=== PATIENT | male | born 1970 | race Caucasian/White ===

== ENCOUNTER 2019-09-27 13:20 | Emergency (ER) | payer MEDICAID, OTHER ==
[~2019-09-27] VITALS: Ht 182.9 cm; Wt 78.0 kg
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
[2019-09-27] MEDS ORDERED: SODIUM CHLORIDE FLUSH 10ML SYR IVF ONE (14:00)
[2019-09-27] MEDS ORDERED: DIAZEPAM 5 MG/ML, 2ML IVPush ONE (14:00)
[2019-09-27] MEDS ORDERED: KETOROLAC 30 MG/1 ML IVPush ONE (14:00)
[2019-09-27] MEDS ORDERED: methylPREDNISolone SOD SUCC 125 MG/2 ML IVPush ONE (14:00)
[2019-09-27] MEDS ORDERED: HYDROmorphone 2 MG/ML, 1ML IVPush PRN (14:00)
[2019-09-27] MEDS ORDERED: methylPREDNISolone SOD SUCC 125 MG/2 ML ONE (14:06)
[2019-09-27] MEDS ORDERED: KETOROLAC 30 MG/1 ML ONE (14:07)
[2019-09-27] MEDS ORDERED: HYDROmorphone 1 MG/ML, 1ML INJ ONE (14:07)
[2019-09-27] MEDS ORDERED: DIAZEPAM 5 MG/ML, 2ML ONE (14:07)
--- NOTE | 2019-09-27 14:16 | NUR ---
MEDICATED PER EMAR
[2019-09-27] MEDS ORDERED: GADOTERATE 10 MMOL/20 ML SYR ONE (14:55)
--- NOTE | 2019-09-27 15:20 | NUR ---
BACK FROM MRI PAIN REMAINS AT 02/19-PROVIDER MADE AWARE
[2019-09-27 15:53] VITALS: BP 138/79
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
== END 2019-09-27 17:19 | disposition home or self-care (01) ==
LOC: ED 16:24
DX: M54.5 Low back pain (principal); R20.0 Anesthesia of skin
CPT/HCPCS: 72158; 96374; 96375; 99285; A9575; J1170; J1885; J2930; J3360; 99284

== ENCOUNTER 2019-09-30 09:09 | Inpatient (IN) | payer MEDICAID ==
[~2019-09-30] VITALS: Ht 182.9 cm; Wt 119.0 kg
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
[2019-09-30] MEDS ORDERED: METHOCARBAMOL 750 MG TABLET ONE (10:24)
[2019-09-30] MEDS ORDERED: HYDROmorphone 1 MG/ML, 1ML INJ ONE ×2 (10:24→17:57)
[2019-09-30] MEDS: HYDROmorphone 1 MG/ML, 1ML INJ IVPush PRN ×2 (10:27→18:01)
--- NOTE | 2019-09-30 10:29 | NUR ---
PT MEDICATED PER EMAR. PT TOLERATED WELL. PT'S AOX4. RESPS EVEN AND UNLABORED.
--- NOTE | 2019-09-30 10:29 | NUR ---
URINAL AT BEDSIDE. PT NEEDS TO VOID COMPLETELY PER EDMD ORDER. PT VERBILIZED UNDERSTANDING.
[2019-09-30] MEDS ORDERED: METHOCARBAMOL 750 MG TABLET PO ONE (10:30)
[2019-09-30] MEDS ORDERED: VITAMIN C (10:31)
[2019-09-30 10:38] LABS: BASOPHILS # (AUTO) 0.07 x10^3/uL (0-0.1); BASOPHILS % (AUTO) 1 % (0-1); EOSINOPHILS # (AUTO) 0.42 x10^3/uL (0-0.4); EOSINOPHILS % (AUTO) 4 % (1-7); LYMPHOCYTES # (AUTO) 2.27 x10^3/uL (1-3.4); LYMPHOCYTES % (AUTO) 20 % (22-44); MD NO; MEAN CORPUSCULAR HEMOGLOBIN 29.9 pg (27.5-34.5); MEAN CORPUSCULAR HGB CONC 33.1 g/dL (33.2-36.2); MEAN CORPUSCULAR VOLUME 90.3 fL (81-97); MEAN PLATELET VOLUME 8.2 fL (7.4-10.4); MONOCYTES # (AUTO) 0.91 x10^3/uL (0.2-0.8); MONOCYTES % (AUTO) 8 % (2-9); NEUTROPHILS # (AUTO) 7.52 x10^3/uL (1.8-6.8); NEUTROPHILS % (AUTO) 67 % (42-75); PLATELET COUNT 196 x10^3/uL (130-400); RED BLOOD COUNT 4.99 x10^6/uL (4.38-5.82); RED CELL DISTRIBUTION WIDTH 15.6 % (9.4-14.8)
[2019-09-30 10:42] LABS: ALBUMIN 3.9 g/dL (3.4-5.0); ANION GAP 8 mmol/L (5-15); CALCIUM 8.8 mg/dL (8.5-10.1); CHLORIDE 110 mmol/L (98-107); CREATININE 1.07 mg/dL (0.7-1.3)
--- NOTE | 2019-09-30 11:09 | NUR ---
PT STATES"I VOIDED COMPLETELY." CLEAR YELLOW URINE ABOUT 20ML IN URINAL. EDMD NOTIFIED.
--- NOTE | 2019-09-30 11:21 | NUR ---
HOSPITALIST AT BEDSIDE AT THIS TIME.
[2019-09-30] MEDS ORDERED: GABAPENTIN 300 MG CAPSULE PO PRN (11:30)
[2019-09-30] MEDS ORDERED: OXYcodone IR 5MG TABLET PO PRN (11:30)
[2019-09-30] MEDS ORDERED: SODIUM CHLORIDE FLUSH 10ML SYR IVF ONE (11:30)
[2019-09-30] MEDS ORDERED: hydrALAzine 20 MG/ML, 1ML IVPush PRN (11:30)
[2019-09-30] MEDS ORDERED: methylPREDNISolone SOD SUCC 40 MG/ML IV SCH (11:30)
[2019-09-30] MEDS ORDERED: ONDANSETRON ODT 4 MG PO PRN (11:30)
[2019-09-30] MEDS ORDERED: BACLOFEN 10 MG TABLET PO PRN (11:30)
[2019-09-30] MEDS ORDERED: IBUPROFEN 600 MG TABLET PO PRN (11:30)
[2019-09-30] MEDS ORDERED: ACETAMINOPHEN 325 MG TABLET PO PRN (11:30)
[2019-09-30] MEDS ORDERED: LIDODERM 5% PATCH TD PRN (11:30)
[2019-09-30] MEDS ORDERED: ONDANSETRON 2MG/ML, 2ML IVPush PRN (11:30)
[2019-09-30] MEDS ORDERED: methylPREDNISolone SOD SUCC 40 MG/ML ONE (11:36)
--- NOTE | 2019-09-30 11:39 | NUR ---
MEDICATIONS ORDERED FROM PHARMACY AT THIS TIME.
--- NOTE | 2019-09-30 11:44 | NUR ---
PT MEDICATED PER EMAR. PT TOLERATED WELL. PT'S AOX4. RESPS EVEN AND UNLABORED.
--- NOTE | 2019-09-30 12:24 | NUR ---
BREAK RN: PT MOVED ON TO HOSPITAL BED. CALL LIGHT WITHIN REACH
[2019-09-30] MEDS: GABAPENTIN 100 MG CAPSULE PO SCH ×3 (12:38→21:14)
[2019-09-30] MEDS: D5%-0.45NACL+KCL 20MEQ 1,000 ML IV SCH ×2 (12:39→22:51)
--- NOTE | 2019-09-30 12:43 | NUR ---
MEDICATED PER EMAR. D5W INFUSING AT THIS TIME. PT TOLERATED WELL.
[2019-09-30 13:43] LABS: PLATELET (PFA) 190 x10^3/uL (130-400)
--- NOTE | 2019-09-30 14:00 | NUR ---
pt in mri at this time.
--- NOTE | 2019-09-30 15:05 | NUR ---
pt back to room from mri at this time.
[2019-09-30] MEDS: methylPREDNISolone SOD SUCC 125 MG/2 ML IV SCH ×2 (15:11→22:52)
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
[2019-09-30] MEDS ORDERED: methylPREDNISolone SOD SUCC 125 MG/2 ML ONE (15:31)
--- NOTE | 2019-09-30 15:37 | NUR ---
PT MEDICATED PER EMAR. PT TOLERATED WELL. PT'S AOX4. RESPS EVEN AND UNLABORED.
--- NOTE | 2019-09-30 16:21 | NUR ---
pt resting in [facility]. pt's aox4. resps even and unlabored. bp/spo2 monitors in place. call light within reach.
--- NOTE | 2019-09-30 16:58 | NUR ---
pt resting in [facility]. pt's aox4. resps even and unlabored. bp/spo2 monitors in place. call light within reach. URINAL AT BEDISDE PER PT'S REQUEST.
--- NOTE | 2019-09-30 18:02 | NUR ---
PT MEDICATED PER EMAR FOR PAIN PER PT'S REQUEST. PT TOLERATED WELL.
--- NOTE | 2019-09-30 18:55 | NUR ---
REPORT GIVEN TO JORGE CHRISTIANSON.
--- NOTE | 2019-09-30 19:23 | NUR ---
PT RESTING ON HOSPITAL BED WITH X3 RAILS RAISED, PROVIDED ICE PACK FOR PT COMFORT. CALL LIGHT WITHIN REACH, REMINDED TO USE CALL LIGHT FOR ANY NEEDS. PT DENIES FURTHER NEEDS AT THIS TIME.
[2019-09-30 22:08] VITALS: BP 155/92
[2019-09-30] MEDS: morphine SULFATE 10 MG/ML, 1ML IVPush PRN (22:51)
[2019-10-01 01:45] VITALS: BP 132/87
[2019-10-01] MEDS: morphine SULFATE 10 MG/ML, 1ML IVPush PRN ×3 (02:33→08:52)
[2019-10-01 03:03] LABS: MICROSCOPIC NOT IND
[2019-10-01 03:10] LABS: CULTURE INDICATED? NO
[2019-10-01] MEDS: GABAPENTIN 100 MG CAPSULE PO SCH (05:47)
[2019-10-01 06:53] VITALS: BP 121/74
[2019-10-01] MEDS: methylPREDNISolone SOD SUCC 125 MG/2 ML IV SCH ×3 (08:16→22:26)
[2019-10-01] MEDS: D5%-0.45NACL+KCL 20MEQ 1,000 ML IV SCH ×2 (08:17→18:00)
[2019-10-01 09:42] LABS: ANION GAP 7 mmol/L (5-15); CALCIUM 8.6 mg/dL (8.5-10.1); CHLORIDE 104 mmol/L (98-107); CREATININE 0.97 mg/dL (0.7-1.3)
[2019-10-01 10:00] LABS: INTERNATIONAL NORMALIZED RATIO 1.01 (0.93-1.1); PROTHROMBIN TIME 10.7 Seconds (9.6-11.5)
[2019-10-01] MEDS: GABAPENTIN 300 MG CAPSULE PO SCH ×3 (10:53→20:28)
[2019-10-01 13:11] LABS: MEAN CORPUSCULAR HEMOGLOBIN 30.2 pg (27.5-34.5); MEAN CORPUSCULAR VOLUME 91.5 fL (81-97); MEAN PLATELET VOLUME 8.7 fL (7.4-10.4); PLATELET COUNT 232 x10^3/uL (130-400); RED BLOOD COUNT 5.15 x10^6/uL (4.38-5.82); RED CELL DISTRIBUTION WIDTH 15.5 % (9.4-14.8)
[2019-10-01] MEDS ORDERED: FENTANYL PF 250 MCG/5ML ONE (13:16)
[2019-10-01] MEDS ORDERED: PROPOFOL 50 ML ONE ×2 (13:16→15:49)
[2019-10-01] MEDS ORDERED: MIDAZOLAM 1 MG/ML, 2ML ONE (13:16)
[2019-10-01] MEDS ORDERED: BUPIVACAINE/PF 0.5% ONE (13:35)
[2019-10-01] MEDS ORDERED: THROMBIN 5,000 UNIT VIAL TP ONE (13:35)
[2019-10-01] MEDS ORDERED: BACITRACIN 50,000 UNIT ONE (13:35)
[2019-10-01] MEDS ORDERED: TRANEXAMIC ACID 100 MG/ML, 10ML ONE (13:35)
[2019-10-01] MEDS ORDERED: EPINEPHRINE 1 MG/ML, 1ML ONE (13:35)
[2019-10-01 13:46] LABS: BASOPHILS # (AUTO) 0.03 x10^3/uL (0-0.1); BASOPHILS % (AUTO) 0 % (0-1); EOSINOPHILS # (AUTO) 0.01 x10^3/uL (0-0.4); EOSINOPHILS % (AUTO) 0 % (1-7); LYMPHOCYTES # (AUTO) 1.37 x10^3/uL (1-3.4); LYMPHOCYTES % (AUTO) 11 % (22-44); MD SCAN; MONOCYTES # (AUTO) 0.61 x10^3/uL (0.2-0.8); MONOCYTES % (AUTO) 5 % (2-9); NEUTROPHILS # (AUTO) 10.09 x10^3/uL (1.8-6.8); NEUTROPHILS % (AUTO) 83 % (42-75)
[2019-10-01] MEDS ORDERED: METOPROLOL 1 MG/ML, 5ML IV PRN (16:00)
[2019-10-01] MEDS ORDERED: DIAZEPAM 5 MG/ML, 2ML IVPush PRN (16:00)
[2019-10-01] MEDS ORDERED: hydrALAzine 20 MG/ML, 1ML IV PRN (16:00)
[2019-10-01] MEDS ORDERED: MIDAZOLAM 1 MG/ML, 2ML IV PRN (16:00)
[2019-10-01] MEDS ORDERED: OXYcodone 5 MG/5 ML ORAL.SOL UDC PO PRN (16:00)
[2019-10-01] MEDS ORDERED: PROMETHAZINE 25 MG/ML, 1ML IV PRN (16:00)
[2019-10-01] MEDS ORDERED: MEPERIDINE/PF 25MG/ML,1ML IVPush PRN (16:00)
[2019-10-01] MEDS ORDERED: ALBUTEROL/IPRATROPIUM 2.5MG/0.5MG, 3 ML NPPB PRN (16:00)
[2019-10-01] MEDS ORDERED: HYDROmorphone 2 MG/ML, 1ML IVPush PRN (16:00)
[2019-10-01] MEDS ORDERED: ONDANSETRON 2MG/ML, 2ML ONE (16:04)
[2019-10-01] MEDS ORDERED: CEFAZOLIN 1,000 MG ONE (16:04)
[2019-10-01] MEDS ORDERED: LIDOCAINE-MPF 2% ,5ML ONE (16:04)
[2019-10-01] MEDS ORDERED: SUCCINYLCHOLINE 20 MG/ML, 10ML ONE (16:04)
[2019-10-01] MEDS ORDERED: PROPOFOL 10 MG/ML, 20ML ONE ×2 (16:04→16:58)
[2019-10-01] MEDS ORDERED: DEXAMETHASONE 4 MG/ML, 1ML ONE (16:04)
[2019-10-01] MEDS ORDERED: ROCURONIUM 10MG/ML,5ML ONE (16:04)
[2019-10-01] MEDS ORDERED: OXYcodone 5 MG/5 ML ORAL.SOL UDC ONE (17:34)
[2019-10-01] MEDS ORDERED: FENTANYL PF 100 MCG/2ML ONE (17:34)
[2019-10-01] MEDS ORDERED: LORazepam 2 MG/ML, 1ML ONE (17:34)
[2019-10-01] MEDS: FENTANYL PF 100 MCG/2ML IV PRN ×2 (17:35→17:45)
[2019-10-01] MEDS ORDERED: DIAZEPAM 5 MG/ML, 2ML ONE (17:48)
[2019-10-01] MEDS ORDERED: METHOCARBAMOL 1,000 MG in DEXTROSE 5% 100 ML IV ONE (18:00)
[2019-10-01] MEDS ORDERED: ONDANSETRON 2MG/ML, 2ML IV PRN (20:00)
[2019-10-01] MEDS ORDERED: OXYcodone/APAP 5/325MG TABLET PO PRN (20:00)
[2019-10-01] MEDS ORDERED: PROMETHAZINE 25 MG/ML, 1ML IM PRN (20:00)
[2019-10-01] MEDS ORDERED: DIPHENHYDRAMINE 50 MG/ML, 1ML IVPush PRN (20:00)
[2019-10-01] MEDS ORDERED: morphine SULFATE 10 MG/ML, 1ML IV PRN (20:00)
[2019-10-01] MEDS ORDERED: BISACODYL 10 MG SUPP PR PRN (20:00)
[2019-10-01] MEDS ORDERED: MAGNESIUM HYDROXIDE 8%, 30ML UDC PO PRN (20:00)
[2019-10-01] MEDS ORDERED: DIPHENHYDRAMINE 50 MG/ML, 1ML IM PRN (20:00)
[2019-10-01] MEDS ORDERED: PHARMACY MAY ADJ FOR RENAL FX MC PRN (20:00)
[2019-10-01] MEDS ORDERED: DIPHENHYDRAMINE 25 MG CAPSULE PO PRN (20:00)
[2019-10-01] MEDS ORDERED: ACETAMINOPHEN 325 MG TABLET PO PRN (20:00)
[2019-10-01] MEDS ORDERED: ACETAMINOPHEN 650 MG SUPP PR PRN (20:00)
[2019-10-01] MEDS: NS + 20MEQ KCL 1,000 ML IV SCH (20:28)
[2019-10-01] MEDS: HYDROcodone/APAP 10/325 MG TABLET PO PRN (20:28)
[2019-10-01 20:47] VITALS: BP 120/70
[2019-10-01] MEDS: CEFAZOLIN PMX 2GM/50ML 50 ML IVPB SCH (22:26)
[2019-10-02] MEDS: HYDROcodone/APAP 10/325 MG TABLET PO PRN ×6 (00:50→22:09)
[2019-10-02] MEDS ORDERED: METHOCARBAMOL 750 MG TABLET PO PRN (02:00)
[2019-10-02 02:14] VITALS: BP 116/75
[2019-10-02] MEDS: GABAPENTIN 300 MG CAPSULE PO SCH ×4 (04:28→22:09)
[2019-10-02] MEDS: NS + 20MEQ KCL 1,000 ML IV SCH ×2 (05:31→16:00)
[2019-10-02 05:58] LABS: ALANINE AMINOTRANSFERASE 47 U/L (12-78); ALBUMIN 3.5 g/dL (3.4-5.0); ANION GAP 6 mmol/L (5-15); CALCIUM 8.4 mg/dL (8.5-10.1); CHLORIDE 106 mmol/L (98-107); CREATININE 1.03 mg/dL (0.7-1.3)
[2019-10-02 06:01] LABS: ALKALINE PHOSPHATASE 42 U/L (45-117); BASOPHILS % (AUTO) 0 % (0-1); BILIRUBIN,TOTAL 0.4 mg/dL (0.2-1.0); EOSINOPHILS # (AUTO) 0.11 x10^3/uL (0-0.4); EOSINOPHILS % (AUTO) 1 % (1-7); LYMPHOCYTES # (AUTO) 0.74 x10^3/uL (1-3.4); LYMPHOCYTES % (AUTO) 5 % (22-44); MD NO; MEAN CORPUSCULAR HEMOGLOBIN 30.3 pg (27.5-34.5); MEAN CORPUSCULAR HGB CONC 33.6 g/dL (33.2-36.2); MEAN CORPUSCULAR VOLUME 90.2 fL (81-97); MEAN PLATELET VOLUME 8.7 fL (7.4-10.4); MONOCYTES # (AUTO) 0.74 x10^3/uL (0.2-0.8); MONOCYTES % (AUTO) 5 % (2-9); NEUTROPHILS # (AUTO) 12.51 x10^3/uL (1.8-6.8); NEUTROPHILS % (AUTO) 89 % (42-75); PLATELET COUNT 198 x10^3/uL (130-400); RED BLOOD COUNT 4.35 x10^6/uL (4.38-5.82); RED CELL DISTRIBUTION WIDTH 15.3 % (9.4-14.8); TOTAL PROTEIN 6.8 g/dL (6.4-8.2)
[2019-10-02] MEDS: CEFAZOLIN PMX 2GM/50ML 50 ML IVPB SCH ×2 (06:36→16:32)
[2019-10-02 06:50] VITALS: BP 114/70
[2019-10-02] MEDS: methylPREDNISolone SOD SUCC 125 MG/2 ML IV SCH ×3 (08:05→22:09)
[2019-10-02] MEDS: SENNA/DOCUSATE TABLET PO SCH (08:05)
[2019-10-02 13:28] VITALS: BP 119/72
[2019-10-02] MEDS ORDERED: MAGNESIUM HYDROXIDE 8%, 30ML UDC PO PRN (14:00)
[2019-10-02] MEDS ORDERED: [UNRECOGNIZED DRUG - REMARK] XX PRN (14:30)
[2019-10-02] MEDS ORDERED: OXYcodone/APAP 10/325MG TABLET PO PRN (16:30)
[2019-10-02 21:29] VITALS: BP 150/80
[2019-10-03] MEDS: NS + 20MEQ KCL 1,000 ML IV SCH (02:00)
[2019-10-03 03:12] VITALS: BP 125/77
[2019-10-03] MEDS: HYDROcodone/APAP 10/325 MG TABLET PO PRN ×3 (03:15→12:56)
[2019-10-03] MEDS: methylPREDNISolone SOD SUCC 125 MG/2 ML IV SCH (05:24)
[2019-10-03] MEDS: GABAPENTIN 300 MG CAPSULE PO SCH ×2 (05:24→10:42)
[2019-10-03 07:27] VITALS: BP 139/80
[2019-10-03] MEDS: SENNA/DOCUSATE TABLET PO SCH (08:01)
[2019-10-03] MEDS ORDERED: CYCL5TAB PO (09:57)
[2019-10-03] MEDS ORDERED: HYDR-36 PO (09:59)
[2019-10-03] MEDS ORDERED: GABA300C10 PO (09:59)
== END 2019-10-03 13:40 | disposition home or self-care (01) | DRG 519 ==
LOC: ED 10:13 → SUATTDRO 11:10 → EDIP 11:23 → 4NE 22:06 → 4EST 10-01 09:57 → 4NE 10-01 09:57 → OBSVTOIN 10-01 12:10 → DCLOUNGE 10-03 13:26
PROVIDERS: ADMIT Hospitalist; ATTEND Hospitalist
PROC: 01NB0ZZ Release Lumbar Nerve, Open Approach (ICD-10-PCS; 2019-10-01)
PROC: 4A11X4G Monitoring of Peripheral Nervous Electrical Activity, Intraoperative, External Approach (ICD-10-PCS; 2019-10-01)
PROC: 00NY0ZZ Release Lumbar Spinal Cord, Open Approach (ICD-10-PCS; principal; 2019-10-01 14:30)
DX: M48.061 Spinal stenosis, lumbar region without neurogenic claudication (principal); E87.1 Hypo-osmolality and hyponatremia; D72.829 Elevated white blood cell count, unspecified; E66.9 Obesity, unspecified; M48.05 Spinal stenosis, thoracolumbar region; I10 Essential (primary) hypertension; R32 Unspecified urinary incontinence; M51.16 Intervertebral disc disorders with radiculopathy, lumbar region; G89.29 Other chronic pain; R15.9 Full incontinence of feces; R29.2 Abnormal reflex; R30.0 Dysuria; R50.9 Fever, unspecified; R63.4 Abnormal weight loss; Z68.35 Body mass index [BMI] 35.0-35.9, adult; Z88.0 Allergy status to penicillin; Z82.49 Family history of ischemic heart disease and other diseases of the circulatory system; Y93.55 Activity, bike riding; V19.40XA Pedal cycle driver injured in collision with unspecified motor vehicles in traffic accident, initial encounter
CPT/HCPCS: 36415; 72100; 73502; 96374; 96375; 96376; 99285; J3490; S0020; 71046; 72141; 72146; 80048; 80053; 81003; 82040; 85014; 85025; 85049; 85576; 85610; 85730; 93005; 95938; 95941; G0378; J0171; J0690; J1100; J1170; J2250; J2405; J2704; J3010; J3360; J3480; J0330; J2270; J2800; J2920; J2930

== ENCOUNTER 2019-10-05 15:16 | Emergency (ER) | payer MEDICAID ==
[~2019-10-05] VITALS: Ht 182.9 cm; Wt 120.0 kg
[~2019-10-05 15:16] MED LIST: CYCL5TAB PO; GABA300C10 PO; HYDR-36 PO; VITAMIN C
[2019-10-05] MEDS ORDERED: HYDROmorphone 1 MG/ML, 1ML INJ IV ONE (15:30)
[2019-10-05] MEDS ORDERED: HYDROmorphone 1 MG/ML, 1ML INJ ONE (15:57)
--- NOTE | 2019-10-05 16:00 | NUR ---
Pt medicated per oct.15 rights verified prior.
[2019-10-05] MEDS ORDERED: DIAZEPAM 5 MG/ML, 2ML ONE (16:56)
[2019-10-05] MEDS ORDERED: DIAZEPAM 5 MG/ML, 2ML IV ONE (17:00)
--- NOTE | 2019-10-05 17:02 | NUR ---
PT STATES OVERALL HE IS FEELING MUCH BETTER. PATIENT MEDICATED PER MAR. 5 RIGHTS VERIFIED PRIOR. 3P'S ADDRESSED.
--- NOTE | 2019-10-05 18:00 | NUR ---
PT FEELS MUCH BETTER. UP FOR RECHECK.
--- NOTE | 2019-10-05 18:44 | NUR ---
PT GIVEN D/C PAPERWORK. PT WAS INFORMED THAT DR. ABEBE'S GROUP HAS BEEN SPOKE TO BY ERP. PT VERBALIZED UNDERSTANDING.
[2019-10-05 18:45] VITALS: BP 119/65
== END 2019-10-05 18:47 | disposition home or self-care (01) ==
LOC: ED 15:56
DX: S39.012A Strain of muscle, fascia and tendon of lower back, initial encounter (principal); W01.0XXA Fall on same level from slipping, tripping and stumbling without subsequent striking against object, initial encounter; Y93.9 Activity, unspecified; Y92.89 Other specified places as the place of occurrence of the external cause; Y99.8 Other external cause status
CPT/HCPCS: 72110; 96374; 96375; 99283; J1170; J3360

== ENCOUNTER 2019-10-09 07:47 | Emergency (ER) | payer MEDICAID ==
[~2019-10-09] VITALS: Ht 182.9 cm; Wt 77.0 kg
[2019-10-09] MEDS ORDERED: HYDROmorphone 1 MG/ML, 1ML INJ IM ONE (08:00)
[2019-10-09] MEDS ORDERED: ONDANSETRON ODT 4 MG PO ONE (08:00)
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
--- NOTE | 2019-10-09 08:20 | NUR ---
PT IN CT NOW.
[2019-10-09] MEDS ORDERED: ONDANSETRON 2MG/ML, 2ML IVPush ONE (08:30)
[2019-10-09] MEDS ORDERED: HYDROmorphone 1 MG/ML, 1ML INJ IV ONE (08:30)
[2019-10-09] MEDS ORDERED: ONDANSETRON 2MG/ML, 2ML ONE (08:50)
--- NOTE | 2019-10-09 08:55 | NUR ---
PT MEDICATED PER EMAR. PT TOLERATED WELL. PT RESTING COMFORTABLY AT THIS TIME. HOLD PAIN MED AT THIS TIME PER PA VERBAL ORDER D/T MILD PAIN AT THIS TIME.
[2019-10-09] MEDS ORDERED: HYDROmorphone 1 MG/ML, 1ML INJ ONE (09:18)
--- NOTE | 2019-10-09 09:20 | NUR ---
PT MEDICATED PER EMAR FOR PAIN. PT'S PAIN LEVEL IS 7/10 AT THIS TIME. PT TOLERATED WELL.
--- NOTE | 2019-10-09 09:40 | NUR ---
PT TO XRAY AT THIS TIME.
--- NOTE | 2019-10-09 10:05 | NUR ---
PT BACK TO ROOM FROM XRAY AT THIS TIME.
[2019-10-09 10:28] VITALS: BP 117/93
--- NOTE | 2019-10-09 11:11 | NUR ---
Patient given discharge instructions and they have confirmed that they understand the instructions.
== END 2019-10-09 11:12 | disposition home or self-care (01) ==
LOC: ED 11:09
DX: S16.1XXA Strain of muscle, fascia and tendon at neck level, initial encounter (principal); S09.90XA Unspecified injury of head, initial encounter; G89.18 Other acute postprocedural pain; M54.5 Low back pain; Z88.0 Allergy status to penicillin; W18.30XA Fall on same level, unspecified, initial encounter; Y93.89 Activity, other specified; Y92.009 Unspecified place in unspecified non-institutional (private) residence as the place of occurrence of the external cause; Y99.8 Other external cause status
CPT/HCPCS: 70450; 72110; 72125; 96374; 96375; 99285; J1170; J2405

== ENCOUNTER 2020-11-17 20:19 | Emergency (ER) | payer MEDICAID, OTHER ==
[~2020-11-17] VITALS: Ht 182.9 cm; Wt 110.0 kg
[~2020-11-17 20:19] MED LIST changes: +HYDR-3248 PO; -HYDR-36 PO
[2020-11-17 20:56] LABS: BASOPHILS % (AUTO) 0 % (0-1); EOSINOPHILS % (AUTO) 0 % (1-7); LYMPHOCYTES % (AUTO) 8 % (22-44); MEAN CORPUSCULAR HEMOGLOBIN 33.9 pg (27.5-34.5); MEAN CORPUSCULAR HGB CONC 34.6 g/dL (33.2-36.2); MEAN PLATELET VOLUME 8.4 fL (7.4-10.4); MONOCYTES % (AUTO) 10 % (2-9); NEUTROPHILS % (AUTO) 82 % (42-75); PLATELET COUNT 66 x10^3/uL (130-400); RED BLOOD COUNT 4.13 x10^6/uL (4.38-5.82)
[2020-11-17] MEDS ORDERED: LORazepam 2 MG/ML, 1ML ONE ×2 (20:56→21:34)
[2020-11-17 20:58] LABS: MD NO
[2020-11-17] MEDS ORDERED: SODIUM CHLORIDE FLUSH 10ML SYR IVF ONE (21:00)
[2020-11-17] MEDS ORDERED: SODIUM CHLORIDE 0.9% 1,000ML IVBOLUS ONE (21:00)
[2020-11-17] MEDS ORDERED: LORazepam 2 MG/ML, 1ML IVPush ONE ×2 (21:00→21:30)
[2020-11-17 21:06] LABS: ALANINE AMINOTRANSFERASE 97 U/L (12-78); ALBUMIN 3.9 g/dL (3.4-5.0); ANION GAP 9 mmol/L (5-15); CALCIUM 8.7 mg/dL (8.5-10.1); CHLORIDE 107 mmol/L (98-107); CREATININE 0.83 mg/dL (0.7-1.3)
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
[2020-11-17 21:11] LABS: ALKALINE PHOSPHATASE 66 U/L (45-117); BILIRUBIN,TOTAL 1.9 mg/dL (0.2-1.0); TOTAL PROTEIN 7.5 g/dL (6.4-8.2); TROPONIN I < 0.015 ng/mL (0.000-0.045)
[2020-11-17 22:25] VITALS: BP 122/71
== END 2020-11-17 22:41 | disposition home or self-care (01) ==
LOC: ED 20:45
DX: R55 Syncope and collapse (principal); R45.1 Restlessness and agitation; R07.9 Chest pain, unspecified; F10.139 Alcohol abuse with withdrawal, unspecified; R42 Dizziness and giddiness; R94.5 Abnormal results of liver function studies; R94.31 Abnormal electrocardiogram [ECG] [EKG]; Y90.0 Blood alcohol level of less than 20 mg/100 ml; W18.00XA Striking against unspecified object with subsequent fall, initial encounter; Y93.89 Activity, other specified; Y92.89 Other specified places as the place of occurrence of the external cause; Y99.8 Other external cause status
CPT/HCPCS: 36415; 71045; 80053; 80320; 84484; 85025; 93005; 96361; 96374; 96376; 99285; J2060; J7030; G0480

== ENCOUNTER 2021-03-27 20:03 | Emergency (ER) | payer MEDICAID, OTHER ==
[~2021-03-27] VITALS: Ht 188 cm; Wt 100.1 kg
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
[2021-03-27] MEDS ORDERED: NALOXONE 0.4 MG/ML, 1ML ONE (20:22)
[2021-03-27] MEDS ORDERED: NALOXONE 1 MG/ML, 2ML ONE (20:36)
[2021-03-27] MEDS ORDERED: KETAMINE 10 MG/ML, 20ML ONE (20:39)
[2021-03-27 20:41] LABS: BASOPHILS % (AUTO) 1 % (0-1); EOSINOPHILS % (AUTO) 4 % (1-7); LYMPHOCYTES % (AUTO) 21 % (22-44); MEAN CORPUSCULAR HEMOGLOBIN 33.7 pg (27.5-34.5); MEAN CORPUSCULAR HGB CONC 33.7 g/dL (33.2-36.2); MEAN PLATELET VOLUME 8.5 fL (7.4-10.4); MONOCYTES % (AUTO) 7 % (2-9); NEUTROPHILS % (AUTO) 67 % (42-75); PLATELET COUNT 151 x10^3/uL (130-400); RED BLOOD COUNT 4.36 x10^6/uL (4.38-5.82); RED CELL DISTRIBUTION WIDTH 13.8 % (9.4-14.8)
[2021-03-27 20:56] LABS: ALBUMIN 3.1 g/dL (3.4-5.0); ANION GAP 6 mmol/L (5-15); CALCIUM 8.1 mg/dL (8.5-10.1); CHLORIDE 112 mmol/L (98-107); CREATININE 0.82 mg/dL (0.7-1.3)
[2021-03-27] MEDS ORDERED: KETAMINE 10 MG/ML, 20ML IV ONE (21:00)
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
[2021-03-27] MEDS ORDERED: PROPOFOL 10 MG/ML, 20ML ONE (21:04)
--- NOTE | 2021-03-27 21:15 | NUR ---
MD ARAGON, MEGHAN LOVELL AT BEDSIDE WITH PATIENT PERFORMING PROCEDURAL SEDATION. PLEASE REFER TO SEDATION PACKET AND CONSENT FOR CHARTING.
--- NOTE | 2021-03-27 21:30 | NUR ---
RADS ACHIEVED, PT MEDICATED PER MAR, NAD, MAINTAINING AIRWAY, SO AT BS, TO BE PROCEDURALLY SEDATED FOR SHOULDER TO BE PUT BACK IN PLACE. WCTM.
--- NOTE | 2021-03-27 21:55 | NUR ---
PATIENT HAS FULLY RECOVERED FROM PROCEDURAL SEDATION. TOLERATED WELL. VISITOR AT BEDSIDE. VSS. REPORT GIVEN TO PRIMARY RN.
[2021-03-27 23:17] VITALS: BP 129/65
--- NOTE | 2021-03-27 23:18 | NUR ---
Patient given discharge instructions and they have confirmed that they understand the instructions. Patient ambulatory with steady gait. NAD, all questions answered appropriately, denies additional needs at this time. No personal belongings left in room after discharge.
--- NOTE | 2021-03-27 23:23 | NUR ---
PT UP OUT OF ROOM WANDERING HALLS, ASKED PT TO STAY BACK IN ROOM TO WAIT FOR DC PAPERS, PT SO STATING "ITS SIDNEY RIDICULOUS WE HAVE TO WAIT THIS LONG, I NEED TO GET BACK TO MY DAUGHTER". RN INFORMED PT WE ARE MOVING FAST WE CAN AND WILL GET THEM DISCHARGED SOON POSSIBLE. PT AND SO AGGITATED WITH RN ANSWER, ASKING "WHERES THE LOBBY" AND REFUSING TO GO BACK TO ROOM.
--- NOTE | 2021-03-27 23:29 | NUR ---
Patient/SO given discharge instructions and they have confirmed that they understand the instructions. Patient ambulatory with steady gait. NAD, all questions answered appropriately, denies additional needs at this time.
== END 2021-03-27 23:31 | disposition home or self-care (01) ==
LOC: ED 23:05
DX: S06.0X0A Concussion without loss of consciousness, initial encounter (principal); S43.085A Other dislocation of left shoulder joint, initial encounter; S02.5XXA Fracture of tooth (traumatic), initial encounter for closed fracture; W01.0XXA Fall on same level from slipping, tripping and stumbling without subsequent striking against object, initial encounter; Y93.01 Activity, walking, marching and hiking; Y92.828 Other wilderness area as the place of occurrence of the external cause; Y99.8 Other external cause status
CPT/HCPCS: 23650; 36415; 70450; 71045; 72125; 80048; 80320; 82040; 85025; 99152; 99291; G0480

== ENCOUNTER 2021-04-04 15:27 | Emergency (ER) | payer MEDICAID ==
[~2021-04-04] VITALS: Ht 182.9 cm; Wt 102.0 kg
[2021-04-04 15:29] VITALS: BP 144/85
== END 2021-04-04 16:29 | disposition home or self-care (01) ==
LOC: ED 15:57
DX: S43.005A Unspecified dislocation of left shoulder joint, initial encounter (principal); Z88.0 Allergy status to penicillin; X58.XXXA Exposure to other specified factors, initial encounter; Y93.89 Activity, other specified; Y92.89 Other specified places as the place of occurrence of the external cause; Y99.8 Other external cause status
CPT/HCPCS: 99281